=== PATIENT | male | born 2000 | race Caucasian/White ===

== ENCOUNTER 2023-04-17 23:24 | Inpatient (IN) | payer SELFPAY ==
[~2023-04-17] VITALS: Ht 177.8 cm; Wt 65.9 kg
[2023-04-18 04:47] LABS: HEMATOCRIT 43.7 % (42.0-52.0); MEAN CORPUSCULAR HEMOGLOBIN 29.6 pg (27.0-33.0); MEAN CORPUSCULAR HGB CONC 34.3 g/dl (32.0-36.5); MEAN CORPUSCULAR VOLUME 86.2 fl (80.0-96.0); PLATELET COUNT, AUTOMATED 249 10^3/uL (150-450); RED BLOOD COUNT 5.07 10^6/uL (4.30-6.10); WHITE BLOOD COUNT 7.2 10^3/uL (4.0-10.0)
[2023-04-18 05:08] LABS: AMPHETAMINES LEVEL URINE NEGATIVE (NEGATIVE); BARBITURATES URINE NEGATIVE (NEGATIVE); BENZODIAZEPINES URINE NEGATIVE (NEGATIVE); CANNABINOIDS URINE NEGATIVE (NEGATIVE); COCAINE METABOLITE URINE NEGATIVE (NEGATIVE); OPIATES URINE NEGATIVE (NEGATIVE); PHENCYCLIDINE URINE NEGATIVE (NEGATIVE)
[2023-04-18 05:09] LABS: METHADONE URINE NEGATIVE (NEGATIVE)
[2023-04-18 05:11] LABS: ETHYL ALCOHOL (ETHANOL) < 0.003 % (0.000-0.010)
[2023-04-18 05:12] LABS: SALICYLATE LEVEL < 3.0 MG/DL (<30)
[2023-04-18 05:21] LABS: ALBUMIN 4.2 G/DL (3.2-5.2); ALKALINE PHOSPHATASE 105 U/L (46-116); ALT/SGPT 23 U/L (7.0-40); AST/SGOT 34 U/L (<34); BILIRUBIN,DIRECT 0.1 MG/DL (<0.4); BILIRUBIN,TOTAL 0.5 MG/DL (0.3-1.2); BLOOD UREA NITROGEN 14 MG/DL (9-23); CALCIUM LEVEL 9.3 MG/DL (8.5-10.1); CARBON DIOXIDE LEVEL 28 MMOL/L (20-31); CHLORIDE LEVEL 106 MMOL/L (98-107); CPK CREATINE PHOSPHOKINASE 109 U/L (46-171); CREATININE FOR GFR 0.84 MG/DL (0.70-1.30); GLOMERULAR FILTRATION RATE > 60.0 (>60); GLUCOSE, FASTING 100 MG/DL (60-100); POTASSIUM SERUM 4.7 MMOL/L (3.5-5.1); SODIUM LEVEL 141 MMOL/L (136-145); THYROID STIMULATING HORMONE 1.861 uIU/ML (0.55-4.78); TOTAL PROTEIN 7.2 G/DL (5.7-8.2)
[2023-04-18] MEDS ORDERED: ACETAMINOPHEN TAB 650MG DOSE (2X325MG) PO PRN (06:15)
[2023-04-18] MEDS ORDERED: traZODone 50 MG TAB PO PRN (06:15)
[2023-04-18] MEDS ORDERED: LORazepam 1 MG TAB PO PRN (06:15)
[2023-04-18] MEDS ORDERED: MOM 30ML SUSPENSION UDC PO PRN (06:15)
[2023-04-18] MEDS ORDERED: IBUPROFEN 400MG TAB PO PRN (06:15)
[2023-04-18] MEDS ORDERED: diphenhydrAMINE 25MG CAP PO PRN (06:15)
[2023-04-18] MEDS ORDERED: MAALOX 30 ML SUSP *UDC PO PRN (06:15)
[2023-04-18 07:47] VITALS: BP 117/69; TEMP 97.8; O2SAT 99
[2023-04-18] MEDS ORDERED: IBUP200C29 PO (08:20)
[2023-04-18] MEDS ORDERED: HOME MED LIST COMPLETE! XX SCH (08:25)
[2023-04-18 15:45] VITALS: BP 112/67; TEMP 97.8; O2SAT 96
[2023-04-19] MEDS ORDERED: UNRESOLVED CLARIFICATION ENTRY XX SCH (00:01)
[2023-04-19 06:39] VITALS: BP 116/57; TEMP 97.9; O2SAT 97
== END 2023-04-19 14:02 | DRG 754 ==
LOC: M ED 23:24 → M ED INP 04-18 06:11 → M PSY 04-18 08:12
PROVIDERS: ADMIT Student in an Organized Health Care Education/Training Program; ATTEND Student in an Organized Health Care Education/Training Program
DX: F32.9 Major depressive disorder, single episode, unspecified (principal); F98.8 Other specified behavioral and emotional disorders with onset usually occurring in childhood and adolescence; F41.9 Anxiety disorder, unspecified; F60.3 Borderline personality disorder; R45.851 Suicidal ideations